=== PATIENT | female | born 1990 | race Caucasian/White ===

== ENCOUNTER 2021-07-05 05:14 | Inpatient (IN) ==
--- NOTE | 2021-06-29 15:46 | Anesthesiology Consultation ---
Date of Service June 29, 2021 Assessment & Plan (1) Encounter for pre-operative examination: - COVID screening: Per manager assessment on 06/28/2021: Travel screen negative, no known COVID-19 positive contacts or current COVID-19 related symptoms in past 2 weeks. Surgeon arranging preop COVID testing, scheduled 07/01/2021. Awaiting results. Chart Review Chart Review: entry examiner initiated History Surgery Operation Date: 07/05/21 07:30 Proposed Procedures p Section in LD - Aislinn Best MD, FACOG Height/Weight Height: 5 ft 3 in Weight: 60.781 kg Allergies Allergy/AdvReac Type Severity Reaction Status Date / Time adhesive tape Allergy Intermediate hives Verified 06/28/21 16:53 Medications Home Medications Medication Instructions Recorded Confirmed Last Taken prenat.vits,adelaida,edp-ketn-vpqtd 1 tab PO DAILY 11/18/20 06/28/21 Unknown ondansetron HCl 4 mg tablet 8 mg PO Q6H PRN #30 tab 06/10/21 06/28/21 Unknown vixrxxghmh-ufglwavxydsrm-gvcwebvo 1 cap PO Q6H PRN 06/28/21 06/28/21 Unknown 50 mg-300 mg-40 mg capsule (Fioricet) Past Medical History Medical History GERD (gastroesophageal reflux disease) no current medication Hx of sepsis (~2018) right knee Migraine x1 about 4-5 months Nausea and vomiting after administration of anesthetic agent Past Family History Family History Other No family history of adverse response to anesthesia Denies family history of Ovarian cancer Breast cancer Colorectal cancer Past Surgical History Surgical History H/O dilation and curettage History of esophagogastroduodenoscopy (EGD) Hx of cholecystectomy S/P section x1 S/P right knee arthroscopy (~2018) right knee infection at [facility] [place] S/P wisdom tooth extraction Social History Smoking Status: Never smoker Do You Dip or Chew Tobacco: No Hx Alcohol Use: No Hx Substance Use: No substance use type: does not use
--- NOTE | 2021-07-02 13:25 | History & Physical Report ---
Date of Service July 02, 2021 Assessment & Plan (1) 39 weeks gestation of : (2) Previous delivery affecting , antepartum: Plan: We will admit pt this monday for planned c/s, repeat. She is aware of options like and desires repeat c/s. Risks, alternatives and complications reviewed and consent signed. Labs am of admission. Questions asked and answered to her apparent satisfaction. History of Present Illness Chief Complaint: planned repeat c/s Primary Care Provider: Jina Craven MD 31yo at 39+wks ega on day of her admission for planned repeat c/s. Patient is doing well. No rom, vb. +FM. No ctx. She is ready for c/s but nervous. Prior c/s was for breech presentation. She does not desire tubal sterilization. PNC c/b 1. FOB with CHD and echo done and wnl PNL rh pos, ri, gbs neg OBH: prior LTCS, sab GY[facility]: nl paps. Allergies Allergy/AdvReac Type Severity Reaction Status Date / Time adhesive tape Allergy Intermediate hives Verified 07/02/21 09:11 Home Medications Medication Instructions Recorded Confirmed Type prenat.vits,adelaida,int-cpss-eymat 1 tab PO DAILY 11/18/20 07/02/21 History ondansetron HCl 4 mg tablet 8 mg PO Q6H PRN #30 tab 06/10/21 07/02/21 Rx mbxpnalgyw-suphkfgsmrivg-efhvvhdu 1 cap PO Q6H PRN 06/28/21 07/02/21 History 50 mg-300 mg-40 mg capsule (Fioricet) Patient History Medical History GERD (gastroesophageal reflux disease) no current medication Hx of sepsis (~2018) right knee Migraine x1 about 4-5 months Nausea and vomiting after administration of anesthetic agent Surgical History H/O dilation and curettage History of esophagogastroduodenoscopy (EGD) Hx of cholecystectomy S/P section x1 S/P right knee arthroscopy (~2018) right knee infection at [facility] [place] S/P wisdom tooth extraction Family History Other No family history of adverse response to anesthesia Denies family history of Ovarian cancer Breast cancer Colorectal cancer Social History Smoking Status: Never smoker Second Hand Exposure: No; Hx Alcohol Use: No Hx Substance Use: No Preferred Language: Maori Communication Ability: Effective Beck Tender Required: No Beliefs That Will Affect Care: None marital status: Single marital status details: John (29) [phone] Current Living Situation: Family and Significant Other Current Living Situation Comment: lives with fiance and son, 2 dogs. current occupational status: employed current occupation: [employer] for [employer] support. Feels Safe at Home: Yes Assistive Devices: None Review of Systems as per Subjective / HPI Physical Exam Constitutional: WD/WN, vitals as above Respiratory: normal respiratory effort, lungs clear to auscultation Cardiovascular: Rate/Rhythm: regular rate and regular rhythm Gastrointestinal (Abdomen): soft gravid nt cephalic by Nii's Musculoskeletal: no edema nontender calves Neurologic: grossly normal Psychiatric: A+Ox3, euthymic affect Coding Level of Care Code None Diagnoses 39 weeks gestation of Z3A.39 Previous delivery affecting , antepartum O34.219
[2021-07-05] MEDS ORDERED: LACTATED RINGER'S 1,000 ML IV SCH ×3 (05:30→08:30)
[2021-07-05 05:48] LABS: Basophils # (auto) 0.03 K/uL (0-0.2); Basophils % (auto) 0.3 %; Eosinophils # (auto) 0.05 K/uL (0-0.5); Eosinophils % (auto) 0.5 %; Hematocrit (blood only) 42.9 % (37-47); Hemoglobin 14.6 g/dL (12.0-16.0); Immature Granulocytes # (auto) 0.06 K/uL (0.00-0.02); Immature Granulocytes % (auto) 0.5 %; Lymphocytes # (auto) 2.41 K/uL (1.2-3.4); Lymphocytes % (auto) 21.7 %; Mean Corpuscular Hemoglobin 30.9 pg (25-34); Mean Corpuscular Volume 90.9 fL (80-100); Mean Platelet Volume 11.8 fL (7.4-10.4); Monocytes # (auto) 0.94 K/uL (0.11-0.59); Monocytes % (auto) 8.5 %; Neutrophils # (auto) 7.61 K/uL (1.4-6.5); Neutrophils % (auto) 68.5 %; Platelet Count 258 K/uL (130-400); RDW Coefficient of Variation 13.1 % (11.5-14.5); RDW Standard Deviation 43.1 fL (36.4-46.3); Red Blood Count 4.72 M/uL (4.2-5.4)
[2021-07-05] MEDS ORDERED: CITRIC ACID/SODIUM CITRATE 15 ML UDC PO SCH (06:00)
[2021-07-05] MEDS ORDERED: ceFAZolin 2,000 MG in SYRINGE 0 ML IV SCH (06:00)
--- NOTE | 2021-07-05 07:18 | History & Physical Bridge Note ---
Date of Service July 05, 2021 History & Physical Bridge Note I have examined the patient, reviewed the History & Physical and in the interval since the performance of the History & Physical I have noted the following changes of clinical significance: no changes noted
[2021-07-05] MEDS ORDERED: NALBUPHINE HCL INJ 10 MG/ML AMP IV PRN (07:25)
[2021-07-05] MEDS ORDERED: NALOXONE HCL 0.4 MG/1 ML VIAL/CARP IV PRN (07:25)
[2021-07-05] MEDS ORDERED: ePHEDrine sulfate 50 MG/ML AMP IV PRN (07:25)
[2021-07-05] MEDS ORDERED: NALOXONE HCL 1 MG in SODIUM CHLORIDE 0.9% 1000ML 1,000 ML IV PRN (07:25)
[2021-07-05] MEDS ORDERED: diphenhydrAMINE 50 MG/ML VIAL IV PRN (07:25)
[2021-07-05] MEDS ORDERED: HYDROmorphone INJ 0.5 MG/0.5 ML SYR IV PRN (07:25)
[2021-07-05] MEDS ORDERED: MoRPHine SULFATE PF 1 MG/ML 10 ML AMP/VIAL INT SPINAL ONE (07:25)
[2021-07-05] MEDS ORDERED: NALOXONE HCL 0.08 MG in SYRINGE 1.8 ML IV PRN (07:25)
[2021-07-05] MEDS ORDERED: LACTATED RINGER'S 500 ML IV PRN (07:25)
[2021-07-05] MEDS ORDERED: NO NARCOTICS OR SEDATIVES SCH (07:30)
[2021-07-05] MEDS ORDERED: SODIUM CHLORIDE 0.9% 1000ML 1,000 ML IV SCH (07:30)
[2021-07-05] MEDS ORDERED: DC INTRASPINAL MORPHINE SCH (07:30)
[2021-07-05] MEDS ORDERED: MoRPHine SULFATE PF 1 MG/ML 10 ML AMP/VIAL ONE (07:34)
[2021-07-05] MEDS ORDERED: fentaNYL citrate 100 MCG/2 ML VIAL ONE (07:34)
[2021-07-05] MEDS ORDERED: PHENYLEPHRINE 100MCG/ML 5ML SYR ONE (07:58)
[2021-07-05] MEDS ORDERED: OXYTOCIN 10 UNITS/ML 10ML VIAL ONE (07:58)
[2021-07-05] MEDS ORDERED: ONDANSETRON INJ 2 MG/ML 2 ML VIAL ONE (08:19)
[2021-07-05] MEDS ORDERED: DIPHTHERIA/TETANUS/PERTUSSIS 0.5 ML SYR/VIAL IM ONE (08:28)
[2021-07-05] MEDS ORDERED: HYDROCORTISONE ACETATE 25 MG SUPP PR PRN (08:28)
[2021-07-05] MEDS ORDERED: MAGNESIUM HYDROXIDE SUSP 30 ML UDC PO PRN (08:28)
[2021-07-05] MEDS ORDERED: BENZOCAINE 20% AER SPR 82.5 GM CAN EXT PRN (08:28)
[2021-07-05] MEDS ORDERED: SENNA 8.6 MG TAB PO PRN (08:28)
--- NOTE | 2021-07-05 08:35 | Post Operative Brief Note ---
PG Immediate Post Op with CF Date of Surgery July 05, 2021 Pre & Post Diagnosis Operation Date: 07/05/21 07:30 Pre-Op Diagnosis: 1. 39 weeks gestation of 2. Previous --desires repeat c/s Post-Op Diagnosis: Same I identified the patient and participated in the time-out.: Yes Procedure Operation Date: 07/05/21 07:30 Actual Procedures p Section in LD; Repeat Lower Uterine Transverse Cesearean Section for the of a viable boy at 0803.(Right) - Aislinn Best MD, FACOG Surgeon Aislinn Best MD, FACOG Block Hacker Ti PGY 1 Estimated Blood Loss 500 Findings Consistent with Post-Op Diagnosis (viable male apgars 8,10 normal uterus, tubes and ovaries bilaterally) Fluids 2000cc Specimens Specimen Description: 1. Placenta: Hold 2. Cord Blood Obtained Drains Whitley Catheter (Whitley catheter inserted without difficulty, patent and draining clear yellow urine. ) Anesthesia Type Spinal Complications none Disposition Accompanied Patient To Recovery: No Disposition: L&D
--- NOTE | 2021-07-05 08:54 | Operative Report ---
PG Post Operative Report Pre & Post Diagnosis Operation Date: 07/05/21 07:30 Pre-Op Diagnosis: 1. 39+ weeks gestation of 2. Previous section, desires repeat section Post-Op Diagnosis: Same I identified the patient and participated in the time-out.: Yes Procedure Operation Date: 07/05/21 07:30 Actual Procedures Repeat Low Transverse Section Surgeon Aislinn Best MD, FACOG Occupational Health And Safety Officer Ti PGY 1 Estimated Blood Loss 500 Findings Consistent with Post-Op Diagnosis (viable male apgars 8,10 normal uterus, tubes and ovaries bilaterally) Fluids 2000 Specimens cord blood Drains foleu Anesthesia Type Spinal Complications none Disposition Accompanied Patient To Recovery: No Disposition: L&D Indications 31yo at 39+wks ega for planned repeat c/s with history of prior c/s, desires repeat. Patient aware of her option for and declines. Ready for c/s. Description of Procedure The patient was taken to the operating room and identified. After adequate anesthesia was obtained, she was placed in the supine position with a leftward tilt on the operating table and prepped and draped in the usual sterile fashion. A torres catheter had already been placed. The knife was used to create a Pfannensteil skin incision that was carried down to the underlying layer of fascia. The fascia was nicked in the midline and this opening was extended laterally using Soni scissors. Jaimie clamps were placed on the superior and inferior aspect of the fascial incision tenting it upward and the underlying rectus muscles were dissected off the overlying fascia both sharply and bluntly using Soni scissors. The rectus muscles were bluntly in the midline. The peritoneal cavity was bluntly entered into. This opening was stretched. The bladder blade was placed. The vesicouterine peritoneum was elevated and opened up into and the bladder flap was created digitally and bladder blade was replaced. The knife was used to create a hysterotomy and this opening was stretched. The operators hand was placed through the hysterotomy and the bladder blade was removed. The head was elevated and flexed and with fundal pressure the head was delivered. Loose nuchal x 1 reduced. The shoulders and body were rapidly delivered. The cord was clamped and cut and the 's mouth and nares were bulb suction. The was handed off to the awaiting pediatricians. Cord blood was obtained. The placenta was manually expressed. The uterus was exteriorized and cleared of all clots and debris. Dilute IV Pitocin was begun. The uterine tone was improving. The hysterotomy was closed in a running interlocking fashion using 0 Vicryl followed by a second imbricating layer of 0 Vicryl. The hysterotomy was hemostatic. The pelvis was irrigated. The uterus was returned to the abdomen. The gutters were cleared of all clots and debris. The hysterotomy was reinspected and noted to be hemostatic. The fascia was then closed in running fashion using 0 Vicryl. The subcutaneous fat was copiously irrigated. The skin was closed in a subcuticular fashion using 4-0 Vicryl. Incision dressed with dermabond after patch testing at thigh due to patient with allergy to adhesives. At this point the procedure was terminated. The patient was transferred to the recovery room in stable condition. All sponge, lap and needle counts are correct x2. I attest to the content of the Intraoperative Record and any orders documented therein. Any exceptions are noted below. OB Procedure Charges 04777
[2021-07-05] MEDS: OXYTOCIN 20 UNITS in LACTATED RINGER'S 1,000 ML IV SCH ×2 (09:26→18:26)
--- NOTE | 2021-07-05 09:39 | Anesthesiology Progress Note ---
Date of Service July 05, 2021 Anesthesia Post Procedure Vital Signs Vital Signs: Temp Pulse Resp BP Pulse Ox 07/05/21 09:35 82 96 07/05/21 09:30 36.4 C L 68 18 111/64 97 07/05/21 09:25 71 97 07/05/21 09:20 36.3 C L 77 18 106/59 L 92 07/05/21 09:17 77 92 07/05/21 09:15 65 97 07/05/21 09:10 69 110/55 L 96 07/05/21 09:06 36.5 C 18 07/05/21 09:05 80 95 07/05/21 09:00 36.5 C 68 18 112/60 96 07/05/21 08:55 65 97 07/05/21 08:50 79 96 07/05/21 08:45 80 97 07/05/21 08:40 95 H 125/62 97 07/05/21 07:30 91 H 98 07/05/21 05:32 36.9 C 79 18 127/80 07/05/21 05:31 79 127/80 Transfer of Care Handoff Completed per policy Notes Mental Status: alert / awake / arousable Patient Amnestic to Procedure: Yes Nausea / Vomiting: adequately controlled Pain: adequately controlled Airway Patency, RR, SpO2: stable & adequate BP & HR: stable & adequate Hydration State: stable & adequate Neuraxial Anesthesia: was administered and sensory block is resolving Anesthetic Complications: no major complications apparent and Pt Satisfied with anesthetic care
[2021-07-05] MEDS: KETOROLAC 30 MG/ML VIAL IV PRN ×2 (11:07→19:40)
[2021-07-05] MEDS: SIMETHICONE 80 MG CHEW PO SCH ×3 (12:06→21:54)
[2021-07-05] MEDS: DOCUSATE SODIUM 100 MG CAP PO SCH (21:56)
[2021-07-06] MEDS ORDERED: diphenhydrAMINE 50 MG/ML VIAL IV PRN (01:26)
[2021-07-06] MEDS ORDERED: ONDANSETRON INJ 2 MG/ML 2 ML VIAL IV PRN (01:26)
[2021-07-06] MEDS ORDERED: diphenhydrAMINE Capsule 25 MG CAP PO PRN (01:26)
[2021-07-06] MEDS ORDERED: PROMETHAZINE HCL 25 MG in SODIUM CHLORIDE 0.9% 50 ML IV PRN (01:26)
[2021-07-06] MEDS ORDERED: IBUPROFEN 600 MG TAB PO ONE (03:22)
[2021-07-06] MEDS: IBUPROFEN 600 MG TAB PO PRN ×5 (03:27→20:33)
[2021-07-06] MEDS: oxyCODONE/ACETAMINOPHEN 5mg/325mg TAB PO PRN ×5 (03:49→20:34)
[2021-07-06 06:13] LABS: Basophils # (auto) 0.01 K/uL (0-0.2); Basophils % (auto) 0.1 %; Eosinophils # (auto) 0.08 K/uL (0-0.5); Eosinophils % (auto) 0.7 %; Immature Granulocytes # (auto) 0.02 K/uL (0.00-0.02); Immature Granulocytes % (auto) 0.2 %; Lymphocytes # (auto) 1.27 K/uL (1.2-3.4); Lymphocytes % (auto) 11.3 %; Mean Corpuscular Hemoglobin 31.2 pg (25-34); Mean Corpuscular Hgb Conc 34.3 g/dL (32-36); Mean Corpuscular Volume 90.9 fL (80-100); Mean Platelet Volume 11.4 fL (7.4-10.4); Monocytes # (auto) 0.92 K/uL (0.11-0.59); Monocytes % (auto) 8.2 %; Neutrophils % (auto) 79.5 %; Platelet Count 173 K/uL (130-400); RDW Coefficient of Variation 13.4 % (11.5-14.5); RDW Standard Deviation 43.5 fL (36.4-46.3); Red Blood Count 3.85 M/uL (4.2-5.4)
--- NOTE | 2021-07-06 07:08 | Obstetrical Progress Note ---
Date of Service <Michel Luke MD - Last Filed: 07/06/21 07:26> July 06, 2021 Assessment & Plan <Michel Luke MD - Last Filed: 07/06/21 07:26> (1) Encounter for care and examination after delivery: POD 1: stable, routine postoperative management * GBS-, RI, Rh+ * patient voiding, ambulating without difficulty * pain well controlled on analgesia- consider scheduling alternating percocet- ibuprofen q4h x12 hours for intense pain. * tolerating regular diet * * reassess d/c readiness tomorrow <Aislinn Best MD, FACOG - Last Filed: 07/06/21 08:10> (1) Encounter for care and examination after delivery: Subjective <Michel Luke MD - Last Filed: 07/06/21 07:26> Post Dot is a 31 y/o female who is POD #1 following repeat for concern for breech presentation at 39+ WGA. She reports feeling well overall this morning. Intense abdominal cramping/incisional pain well managed on analgesics. Voiding well. Tolerating meals overnight and able to ambulate without assistance. Lochia is improved this morning. Currently . Review of Systems Denies fever, chills, sweats Denies shortness of breath, difficulty breathing, chest pain, palpitations, chest pressure. Denies breast pain. Denies dysuria. Denies headache or changes in vision. Review of Systems All systems reviewed & are unremarkable except as noted in HPI & below <Aislinn Best MD, FACOG - Last Filed: 07/06/21 08:10> Post Dot is a 31 y/o female who is POD #1 following repeat for indication desires repeat c/s. She reports feeling well overall this morning. Intense abdominal cramping/incisional pain well managed on analgesics. Voiding well. Tolerating meals overnight and able to ambulate without assistance. Lochia is improved this morning. Currently . Review of Systems Denies fever, chills, sweats Denies shortness of breath, difficulty breathing, chest pain, palpitations, chest pressure. Denies breast pain. Denies dysuria. Denies headache or changes in vision. Physical Exam <Michel Luke MD - Last Filed: 07/06/21 07:26> General: Alert, oriented. No acute distress. Cardiac: Regular rate and rhythm, no murmurs/rubs/gallops. Respiratory: Clear to auscultation bilaterally a/p, no wheezes/rales/rhonchi. No increased work of breathing. Symmetrical chest rise. No respiratory distress. Abdomen: Soft, nontender, nondistended. Bowel sounds present. Uterus: Uterine fundus firm, palpable 1 cm below umbilicus. Surgical scar clean and healing well. Some mild bruising below incision at the pubis. Lower Extremities: No lower extremity edema or swelling. No deep calf pain. Constantine's negative bilaterally. Results & Data ([facility]) <Michel Luke MD - Last Filed: 07/06/21 07:26> Vital Signs (Past 12 Hours) Vital Signs Temp Pulse Resp BP Pulse Ox 07/06/21 03:45 36.6 C 62 16 108/72 99 07/06/21 01:00 18 98 07/06/21 00:15 37.1 C 85 20 90/64 L 98 07/06/21 00:00 20 98 07/05/21 23:00 18 98 07/05/21 22:00 20 99 07/05/21 21:00 18 98 07/05/21 20:00 20 99 07/05/21 19:20 37 C 65 18 90/61 L 98 <Aislinn Best MD, FACOG - Last Filed: 07/06/21 08:10> Co-Signing Physician Notes Resident Physician Supervision Note: I was present with Dr. Luke during the history and exam. I discussed the case with the resident and agree with the findings and plan as documented in the note. Any exceptions or clarifications are listed here: pain control issues overnight but better this am. using po pain meds. had some hesitancy to void, need to be sure voiding well today. adv diet. ambulate. abd soft ff 1 down nt, incision c/d/i. bruising suprapubically noted. hgb noted. routine pp care. breast/rhpos/ri. Documented By: Aislinn Best MD, FACOG Resident Activity Tracking <Michel Luke MD - Last Filed: 07/06/21 07:26> Resident Involvement: Resident Care Provided Care Provided: OB Delivery
[2021-07-06] MEDS: SIMETHICONE 80 MG CHEW PO SCH ×4 (08:10→20:29)
[2021-07-06] MEDS: FERROUS SULFATE 325 MG TAB PO SCH (08:11)
[2021-07-06] MEDS: DOCUSATE SODIUM 100 MG CAP PO SCH ×2 (08:11→20:30)
[2021-07-06] MEDS: PRENATAL VITAMIN 1 TAB PO SCH (08:11)
[2021-07-06] MEDS: FAMOTIDINE 20 MG TAB PO SCH (14:24)
[2021-07-06] MEDS ORDERED: ONDANSETRON 4 MG OD TAB PO PRN (17:32)
[2021-07-06] MEDS ORDERED: bisacodyL 5 MG TABEC PO SCH (20:00)
[2021-07-07] MEDS: oxyCODONE/ACETAMINOPHEN 5mg/325mg TAB PO PRN ×2 (01:15→07:41)
[2021-07-07] MEDS: IBUPROFEN 600 MG TAB PO PRN ×2 (01:18→07:41)
[2021-07-07 06:27] LABS: Hematocrit (blood only) 33.7 % (37-47)
--- NOTE | 2021-07-07 07:35 | Obstetrical Progress Note ---
Date of Service <Michel Luke MD - Last Filed: 07/07/21 07:35> July 07, 2021 Assessment & Plan <Michel Luke MD - Last Filed: 07/07/21 07:35> (1) Encounter for care and examination after delivery: POD 2: stable, routine postoperative management * GBS-, RI, Rh+ * patient voiding, ambulating without difficulty * pain well controlled on analgesia * tolerating regular diet * * anticipate d/c today * 6-week outpatient OB follow-up <Funmilayo Webster MD, FACOG - Last Filed: 07/07/21 08:55> (1) Encounter for care and examination after delivery: Subjective <Michel Luke MD - Last Filed: 07/07/21 07:35> Post Dot is a who is POD 2 following at 39+ WGA. She reports feeling well overall this morning. Much improved 7/10 incisional pain well managed on analgesics. Voiding well. Tolerating meals overnight and able to ambulate on her own. Lochia improved this morning. Currently . Review of Systems Denies fever, chills, sweats Denies shortness of breath, difficulty breathing, chest pain, palpitations, chest pressure. Denies breast pain. Denies dysuria. Denies headache or changes in vision. Physical Exam <Michel Luke MD - Last Filed: 07/07/21 07:35> General: Alert, oriented. No acute distress. Cardiac: Regular rate and rhythm, no murmurs/rubs/gallops. Respiratory: Clear to auscultation bilaterally a/p, no wheezes/rales/rhonchi. No increased work of breathing. Symmetrical chest rise. No respiratory distress. Abdomen: Soft, nontender, nondistended. Bowel sounds present. Uterus: Uterine fundus firm, palpable 1 cm below umbilicus. Surgical scar clean and healing well. Bruising on the pubis unchanged from yesterday, w/o tenderness to palpation. Lower Extremities: No lower extremity edema or swelling. No deep calf pain. Constantine's negative bilaterally. <Funmilayo Webster MD, FACOG - Last Filed: 07/07/21 08:55> Co-Signing Physician Notes Resident Physician Supervision Note: I interviewed and examined the patient. Discussed with Dr. Luke and agree with findings and plan as documented in the note. Any exceptions or clarifications are listed here: [None] Documented By: Funmilayo Webster MD, FACOG Resident Activity Tracking <Michel Luke MD - Last Filed: 07/07/21 07:35> Resident Involvement: Resident Care Provided Care Provided: OB Delivery
[2021-07-07] MEDS ORDERED: bisacodyL 10 MG SUPP PR PRN (08:24)
[2021-07-07] MEDS: PRENATAL VITAMIN 1 TAB PO SCH (08:45)
[2021-07-07] MEDS: SIMETHICONE 80 MG CHEW PO SCH (08:45)
[2021-07-07] MEDS: FERROUS SULFATE 325 MG TAB PO SCH (08:45)
[2021-07-07] MEDS: DOCUSATE SODIUM 100 MG CAP PO SCH (08:45)
[2021-07-07] MEDS: FAMOTIDINE 20 MG TAB PO SCH (08:50)
--- NOTE | 2021-07-11 14:02 | Discharge Summary ---
Date of Service Date of admit: July 05, 2021 Date of discharge: 07/07/21 Admission HPI Per Admitting Provider 31yo at 39+wks ega on day of her admission for planned repeat c/s. Patient is doing well. No rom, vb. +FM. No ctx. She is ready for c/s but nervous. Prior c/s was for breech presentation. She does not desire tubal sterilization. PNC c/b 1. FOB with CHD and echo done and wnl PNL rh pos, ri, gbs neg OBH: prior LTCS, sab GYNH: nl paps. Discharge Data Consultations 07/05/21 05:18 Consult Anesthesiology Stat Procedures Performed Operation Date: 07/05/21 07:30 Actual Procedures p Section in LD; Repeat Lower Uterine Transverse Cesearean Section for the of a viable boy at 0803.(Right) - Aislinn Best MD, [facility] (1) Previous delivery affecting , antepartum: The patient underwent the above stated procedure without incident and her postoperative course and recovery was uncomplicated. On her postoperative day #2 she was tolerating a regular diet, voiding spontaneously, ambulating without problem and was using oral meds for adequate pain control. Her postoperative hemoglobin was 11.0. She was given written and verbal discharge instructions and told to followup in office at 6wks. She was given appropriate pain medicine prescriptions. Coding Level of Care Code None Diagnoses Previous delivery affecting , antepartum O34.219
== END 2021-07-07 11:25 | disposition home or self-care (01) | DRG 788 ==
LOC: 4S1 05:14 → EDSTATUS 07:30 → 4E2 12:01